=== PATIENT | female | born 1990 | race Caucasian/White ===

== ENCOUNTER 2019-09-13 16:35 | Emergency (ER) | payer MEDICAID, OTHER ==
[~2019-09-13] VITALS: Ht 167.6 cm; Wt 88.5 kg
[2019-09-13 17:38] LABS: MICROSCOPIC AUTO
--- NOTE | 2019-09-13 18:40 | NUR ---
PT IN US WHEN CALLED FROM [facility], NOTIFIED TO BRING PT TO [facility] WHEN STUDY COMPLETED.
[2019-09-13 18:48] LABS: BASOPHILS # (AUTO) 0.03 x10^3/uL (0-0.1); BASOPHILS % (AUTO) 0 % (0-1); EOSINOPHILS % (AUTO) 2 % (1-7); LYMPHOCYTES # (AUTO) 1.61 x10^3/uL (1-3.4); LYMPHOCYTES % (AUTO) 18 % (22-44); MD NO; MEAN CORPUSCULAR HEMOGLOBIN 29.9 pg (27.0-34.8); MEAN CORPUSCULAR HGB CONC 33.7 g/dL (32.4-35.8); MEAN CORPUSCULAR VOLUME 88.6 fL (80-100); MEAN PLATELET VOLUME 8.3 fL (7.4-10.4); MONOCYTES # (AUTO) 0.69 x10^3/uL (0.2-0.8); MONOCYTES % (AUTO) 8 % (2-9); NEUTROPHILS # (AUTO) 6.41 x10^3/uL (1.8-6.8); NEUTROPHILS % (AUTO) 72 % (42-75); PLATELET COUNT 304 x10^3/uL (130-400); RED BLOOD COUNT 4.49 x10^6/uL (3.82-5.3); RED CELL DISTRIBUTION WIDTH 13.1 % (9.6-15.2)
--- NOTE | 2019-09-13 18:55 | NUR ---
REPORT GIVEN TO LORETO
[2019-09-13 19:02] LABS: ALBUMIN 4.2 g/dL (3.4-5.0); ANION GAP 4 mmol/L (5-15); CALCIUM 9.2 mg/dL (8.5-10.1); CHLORIDE 107 mmol/L (98-107); CREATININE 0.77 mg/dL (0.55-1.02)
--- NOTE | 2019-09-13 19:12 | NUR ---
RECEVIED CALL FROM [facility]OD [facility]ANK ABOUT POSSIBLE RHOGAM ADMINISTRATION. PT TO BE SEEN MY ERP FIRST PT STRAIGHT TO US FROM LOBBY. PT IN US AT THIS TIME.
--- NOTE | 2019-09-13 19:20 | NUR ---
PT TO ROOM FROM US.
--- NOTE | 2019-09-13 19:25 | NUR ---
PT REPORTS SCANT AMOUNT OF VAGINAL BLEEDING X2 WEEKS. REPORTS APPX 9 WEEKS . BLEEDING BECAME HEAVIER WITH CLOTTING X3 DAYS WITH CLOTS INCREASING IN SIZE. PT REPORTS LARGEST CLOT APPX QUARTER SIZED. PT DENIES ANY CRAMPING OR ANY OTHER MEDICAL C/O AT THIS TIME. 4 PARA 3. LAST MISCARRIAGE APPX 15 YEARS AGO. OTHERWISE LAST 3 PREGNANCIES TO TERM WITHOUT COMPLICATIONS. PT CONNECTED TO MONITORING, CALL LIGHT WITHIN REACH, ALL SAFETY MEASURES IN PLACE.
[2019-09-13 20:43] VITALS: BP 111/66
[2019-09-13 21:05] VITALS: BP 118/55
[2019-09-13 21:07] VITALS: BP 118/55
== END 2019-09-13 21:12 | disposition home or self-care (01) ==
LOC: ED 20:30
DX: O03.9 Complete or unspecified spontaneous abortion without complication (principal)
CPT/HCPCS: 36415; 36430; 76801; 80048; 81001; 82040; 84702; 85025; 86850; 86900; 99285; J2790

== ENCOUNTER 2020-01-29 10:33 | Emergency (ER) | payer MEDICAID ==
[~2020-01-29] VITALS: Ht 167.6 cm; Wt 93.6 kg
[2020-01-29 10:37] VITALS: BP 124/59
[2020-01-29] MEDS ORDERED: SODIUM CHLORIDE 0.9% 1,000ML IVBOLUS ONE (11:30)
[2020-01-29] MEDS ORDERED: ONDANSETRON 2MG/ML, 2ML IVPush ONE (11:30)
[2020-01-29] MEDS ORDERED: SODIUM CHLORIDE FLUSH 10ML SYR IVF ONE (11:30)
[2020-01-29 11:42] LABS: BASOPHILS % (AUTO) 0 % (0-1); EOSINOPHILS % (AUTO) 1 % (1-7); LYMPHOCYTES % (AUTO) 14 % (22-44); MEAN CORPUSCULAR HEMOGLOBIN 29.4 pg (27.0-34.8); MEAN CORPUSCULAR HGB CONC 34.5 g/dL (32.4-35.8); MEAN PLATELET VOLUME 8.2 fL (7.4-10.4); MONOCYTES % (AUTO) 8 % (2-9); NEUTROPHILS % (AUTO) 76 % (42-75); PLATELET COUNT 307 x10^3/uL (130-400); RED BLOOD COUNT 4.65 x10^6/uL (3.82-5.3)
[2020-01-29 11:48] LABS: MD NO
[2020-01-29 11:55] LABS: ANION GAP 4 mmol/L (5-15); CALCIUM 9.4 mg/dL (8.5-10.1); CHLORIDE 106 mmol/L (98-107)
[2020-01-29 11:59] LABS: MICROSCOPIC INDICATED
[2020-01-29 12:14] LABS: CREATININE 0.69 mg/dL (0.55-1.02)
== END 2020-01-29 13:51 ==
LOC: ED 11:47
DX: O21.0 Mild hyperemesis gravidarum (principal); Z20.828 Contact with and (suspected) exposure to other viral communicable diseases; R94.31 Abnormal electrocardiogram [ECG] [EKG]; Z3A.01 Less than 8 weeks gestation of pregnancy
CPT/HCPCS: 36415; 76801; 80048; 81001; 82040; 84702; 85025; 87086; 87635; 93005; 99285